=== PATIENT | female | born 1945 | race Caucasian/White ===

== ENCOUNTER 2020-04-20 11:49 | Emergency (ER) | payer MEDICARE ==
[~2020-04-20] VITALS: Ht 167.6 cm; Wt 81.6 kg
[~2020-04-20 11:49] MED LIST: ASPIRIN81 M3 PO; Z.0.ATENOLOL25 MG PO; Z.0.COZAAR100 MG PO; Z.0.HYDROCHLOROTHIA2 PO; Z.0.LIPITOR40 MG PO; Z.0.METHIMAZOLE10 MG PO
== END 2020-04-20 13:00 | disposition home or self-care (01) ==
LOC: FSED 12:30
DX: B02.9 Zoster without complications (principal); I10 Essential (primary) hypertension; K21.9 Gastro-esophageal reflux disease without esophagitis
CPT/HCPCS: 99283